=== PATIENT | male | born 1975 | race African-American/Black ===

== ENCOUNTER 2017-01-09 05:51 | Emergency (ER) | payer OTHER ==
[~2017-01-09] VITALS: Ht 182.9 cm; Wt 109.0 kg
[2017-01-09] MEDS ORDERED: ONDANSETRON 4MG ODT PO ONE (08:15)
[2017-01-09] MEDS ORDERED: MORPHINE SULFATE 10 MG/ML CPJ SUBCUT ONE (08:15)
[2017-01-09] MEDS ORDERED: DIAZEPAM 5 MG TABLET PO ONE (08:15)
[2017-01-09 08:39] VITALS: BP 125/72
== END 2017-01-09 09:17 | disposition home or self-care (01) ==
LOC: ER 07:13
DX: M54.5 Low back pain (principal); R03.0 Elevated blood-pressure reading, without diagnosis of hypertension; X58.XXXA Exposure to other specified factors, initial encounter; Y93.89 Activity, other specified; Y92.89 Other specified places as the place of occurrence of the external cause; Y99.8 Other external cause status
CPT/HCPCS: 96372; 99283; J2270; Q0162